=== PATIENT | female | born 1995 | race Caucasian/White ===

== ENCOUNTER 2019-05-05 16:52 | Outpatient (REF) | payer BC, SELFPAY ==
[2019-05-05 22:16] LABS: FREE T4 0.89 ng/dL (0.76-1.46); TSH 1.08 uIU/mL (0.36-3.74)
[2019-05-06 17:25] LABS: T3,Free 3.9 pg/ml (2.8-5.3)
== END 2019-05-05 17:12 ==
LOC: NCHCN 16:52
PROVIDERS: PCP Nurse Practitioner Family; Visit Provider Nurse Practitioner Family
DX: Z00.00 Encounter for general adult medical examination without abnormal findings (principal); E05.90 Thyrotoxicosis, unspecified without thyrotoxic crisis or storm; F41.0 Panic disorder [episodic paroxysmal anxiety]; F41.9 Anxiety disorder, unspecified
CPT/HCPCS: 84439; 84443; 84481

== ENCOUNTER 2019-08-04 22:26 | Outpatient (REF) | payer BC, SELFPAY | END 2019-08-04 22:46 | LOC: NCHCN 22:26 | PROVIDERS: PCP Nurse Practitioner Family; Visit Provider Family Medicine | DX: R30.0 Dysuria (principal) | CPT/HCPCS: 87086 ==

== ENCOUNTER 2020-08-26 20:30 | Outpatient (REF) | payer BC, SELFPAY ==
[2020-08-30 21:54] LABS: Patient Race White; SARS-CoV-2 RNA Undetected (Undetected); SARS-CoV-2 Specimen Source Nasal
== END 2020-08-26 20:50 ==
LOC: NCHCN 20:30
PROVIDERS: PCP Nurse Practitioner Family; Visit Provider Nurse Practitioner Family
DX: J06.9 Acute upper respiratory infection, unspecified (principal)
CPT/HCPCS: U0003

== ENCOUNTER 2020-10-11 10:06 | Outpatient (REF) | payer SELFPAY ==
[2020-10-11 21:01] LABS: FREE T4 0.89 ng/dL (0.76-1.46); TSH 1.54 uIU/mL (0.36-3.74)
[2020-10-12 16:33] LABS: T3,Free 3.3 pg/mL (2.8-5.3)
== END 2020-10-11 10:26 ==
LOC: NCHCN 10:06
PROVIDERS: PCP Nurse Practitioner Family; Visit Provider Nurse Practitioner Family
DX: E05.80 Other thyrotoxicosis without thyrotoxic crisis or storm (principal); F41.9 Anxiety disorder, unspecified; F41.0 Panic disorder [episodic paroxysmal anxiety]; E66.9 Obesity, unspecified
CPT/HCPCS: 84439; 84443; 84481

== ENCOUNTER 2020-10-27 02:02 | Outpatient (CLI) | payer OTHER, SELFPAY ==
--- NOTE | 2020-10-27 | DI.US_ITS ---
EXAM: US THYROID CLINICAL HISTORY: HYPERTHYROIDISM,E05.90. TECHNIQUE: Ultrasound thyroid performed using standard protocol. COMPARISON: No exams were available for comparison FINDINGS: ISTHMUS: 5 mm RIGHT LOBE: Size: 5.5 x 1.4 x 1.2 cm Echogenicity: Normal. Vascularity: Normal. Nodules: None. LEFT LOBE: Size: 5.4 x 1.3 x 1.3 cm Echogenicity: Normal. Vascularity: Normal. Nodules: None. OTHER FINDINGS: None. IMPRESSION: Normal sonographic appearance of the thyroid gland. DATA REPOSITORY:
== END 2020-10-27 02:22 ==
PROVIDERS: PCP Nurse Practitioner Family; Visit Provider Nurse Practitioner Family
DX: E05.90 Thyrotoxicosis, unspecified without thyrotoxic crisis or storm (principal)
CPT/HCPCS: 76536

== ENCOUNTER 2023-01-30 16:23 | Outpatient (REF) | payer OTHER, SELFPAY ==
[2023-01-30 21:09] LABS: FREE T4 0.93 ng/dL (0.76-1.46); TSH 3.09 uIU/mL (0.36-3.74)
[2023-01-31 17:26] LABS: T3,Free 3.9 pg/mL (2.8-5.3)
== END 2023-01-30 16:24 | disposition home or self-care (01) ==
LOC: NCHCN 16:23
PROVIDERS: PCP Nurse Practitioner Family; Visit Provider Nurse Practitioner Family
DX: E05.90 Thyrotoxicosis, unspecified without thyrotoxic crisis or storm (principal)
CPT/HCPCS: 84439; 84443; 84481

== ENCOUNTER 2024-04-15 14:51 | Outpatient (REF) | payer OTHER, SELFPAY ==
--- NOTE | 2024-04-15 12:15 | PAPFT_PTH ---
PATIENT: Macey Salomon LOC: [facility]#:[id number] AGE/SX: 29/F ROOM: RE04/15/[address]: Melina Do : 1995 BED: DIS: 04/15/2024 SPEC #: [id number] RECD: 04/15/24 17:43 STATUS: SHYLA REJames #: [id number] JOE: 04/15/24 12:[address]: Melina Do DEPT: [facility] Cytology RECD BY: Ileana Sanchez Tissues: 1 - CX/ENDOCX FOR PAP SMEARS Procedures: PAP THIN PREP/[facility] Screening HPV DNA PROBE Comments: [id number] (HPV 16 & 18/45)
[2024-04-15 23:54] LABS: Calculated LDL 151 mg/dL (<100); Cholesterol 238 mg/dL (<200); HDL Cholesterol 49 mg/dL (40-60); TSH 3.31 uIU/Ml (0.36-3.74); Triglyceride 192 mg/dL (<150)
[2024-04-16 00:11] LABS: FREE T4 0.87 ng/dL (0.76-1.46)
[2024-04-16 20:37] LABS: Thyroperoxidase Antibody 114 U/mL (<=60)
[2024-04-17 10:08] LABS: HIV-1/2 Ag & Ab Screen Negative (Negative)
[2024-04-23 16:34] LABS: T3,Free 3.5 pg/mL (2.8-5.3)
== END 2024-04-15 14:52 | disposition home or self-care (01) ==
LOC: NCHCN 14:51
PROVIDERS: PCP Nurse Practitioner Family; Visit Provider Nurse Practitioner Family
DX: Z13.29 Encounter for screening for other suspected endocrine disorder (principal)
CPT/HCPCS: 80061; 87389; 88142; 84439; 84443; 84481; 86376; 87624

== ENCOUNTER 2024-07-21 16:30 | Outpatient (REF) | payer OTHER, SELFPAY ==
[2024-07-21 23:21] LABS: FREE T4 0.77 ng/dL (0.76-1.46); TSH 3.09 uIU/mL (0.36-3.74)
[2024-07-22 17:54] LABS: T3,Free 3.8 pg/mL (2.8-5.3)
[2024-07-22 19:05] LABS: Thyroglobulin Antibody 236 U/mL (<=60); Thyroperoxidase Antibody 151 U/mL (<=60)
== END 2024-07-21 16:31 | disposition home or self-care (01) ==
LOC: NCHCN 16:30
PROVIDERS: PCP Nurse Practitioner Family; Visit Provider Nurse Practitioner Family
DX: E05.90 Thyrotoxicosis, unspecified without thyrotoxic crisis or storm (principal)
CPT/HCPCS: 84439; 84443; 84481; 86376; 86800

== ENCOUNTER 2025-04-17 14:04 | Outpatient (REF) | payer OTHER, SELFPAY ==
[2025-04-17 16:19] LABS: TSH 3.39 uIU/mL (0.36-3.74); Vitamin D 25 Total 31 ng/mL (30-100)
[2025-04-17 22:48] LABS: T3,Free 3.5 pg/mL (2.8-5.3)
== END 2025-04-17 14:05 | disposition home or self-care (01) ==
LOC: NCHCN 14:04
PROVIDERS: PCP Nurse Practitioner Family; Visit Provider Nurse Practitioner Family
DX: E05.90 Thyrotoxicosis, unspecified without thyrotoxic crisis or storm (principal)
CPT/HCPCS: 82306; 84439; 84443; 84481; 86376; 86800